=== PATIENT | female | born 1955 | race Caucasian/White ===

== ENCOUNTER 2022-09-09 18:56 | Inpatient (IN) | payer OTHER ==
[~2022-09-09] VITALS: Ht 142.2 cm; Wt 67.6 kg
[2022-09-09] MEDS: DEXT 5% /NACL 0.9% 1,000 ML IV SCH
--- NOTE | 2022-09-09 19:12 | NUR ---
Blood for labwork drawn by residential program coordinator. Patient tolerated well.
[2022-09-09 19:15] VITALS: BP 150/82
[2022-09-09 19:28] LABS: BASOPHILS % (AUTO) 0.1 % (0.0-2.0); EOSINOPHILS % (AUTO) 0.1 % (0.0-4.0); HEMOGLOBIN 12.3 g/dL (12.0-16.0); LYMPHOCYTES # (AUTO) 1.8 K/uL (2.5-16.5); LYMPHOCYTES % (AUTO) 18.1 % (20.5-51.1); MEAN CORPUSCULAR HEMOGLOBIN 25 pg (27-31); MEAN CORPUSCULAR HGB CONC 33 g/dL (33-37); MEAN CORPUSCULAR VOLUME 75.3 fL (80-94); MONOCYTES # (AUTO) 0.8 K/uL (0.8-1.0); MONOCYTES % (AUTO) 8.6 % (1.7-9.3); NEUTROPHILS # (AUTO) 7.2 K/uL (1.8-7.7); NEUTROPHILS % (AUTO) 73.1 % (42.2-75.2); PLATELET COUNT (AUTO) 282 K/uL (140-450); RED BLOOD CELL COUNT(AUTO) 4.92 MIL/uL (4.20-5.40); RED CELL DISTRIBUTION WIDTH 14.7 % (11.6-13.7); WHITE BLOOD COUNT (AUTO) 9.8 K/uL (4.8-10.8)
[2022-09-09 19:43] LABS: APPEARANCE,URINE CLEAR (CLEAR); BILIRUBIN,URINE NEGATIVE (NEGATIVE); BLOOD, URINE NEGATIVE (NEGATIVE); COLOR,URINE YELLOW (YELLOW); LEUKOCYTE ESTERASE ,URINE NEGATIVE (NEGATIVE); NITRITE, URINE NEGATIVE (NEGATIVE); UGLUCOSE NEGATIVE (NEGATIVE)
[2022-09-09 19:56] LABS: ALBUMIN 3.6 g/dL (3.4-5.0); ANION GAP 13.7 (8-16); CARBON DIOXIDE 24.5 mmol/L (21-32); CREATININE 0.7 mg/dL (0.6-1.3); POTASSIUM 3.2 mmol/L (3.5-5.1); TOTAL BILIRUBIN 0.6 mg/dL (0.0-1.0)
--- NOTE | 2022-09-09 20:44 | NUR ---
SIN IN ROOM FOR ASSESSMENT
--- NOTE | 2022-09-09 20:44 | NUR ---
67 Y/O FEMALE BIB SELF, C/O LLQ ABD PAIN, CONSTIPATION THAT STARTED YESTERDAY. PT DENIES N/V/D. PT STATES SHE HAS SMALL STOOL THIS MORNING, BUT STILL FEELS CONSTIPATION. A&OX4, AMBULATES WITH STEADY GAIT, [place] SPEAKING. PT DESCRIBES PAIN "TWISTING" SENSATION, 8/10 PAIN. PT STATES SHE TOOK TYLENOL THIS MORNING WITH NO RELIEF. PMH: HTN, DM2 ALLERGY: NAPROXEN, IBUPROFEN
[2022-09-09] MEDS ORDERED: NACL 0.9% 1,000 ML IV ONE ×2 (20:55→22:30)
[2022-09-09] MEDS ORDERED: MORPHINE SULFATE 4 MG/ML SYR IVP ONE (20:55)
[2022-09-09] MEDS ORDERED: ONDANSETRON 4 MG/2 ML VIAL IVP ONE (20:55)
[2022-09-09] MEDS ORDERED: KCL 20 MEQ IN 100 mL PREMIX 100 ML IV ONE (21:00)
--- NOTE | 2022-09-09 21:16 | NUR ---
PT TAKEN TO CT
[2022-09-09] MEDS ORDERED: HYDROcodone/APAP 5/325 MG 1 TAB TAB PO PRN (22:35)
[2022-09-09] MEDS ORDERED: MORPHINE SULFATE 4 MG/ML SYR IVP PRN (22:35)
[2022-09-09] MEDS ORDERED: ZOLPIDEM 5 MG TAB PO PRN (22:35)
[2022-09-09] MEDS ORDERED: MAG SULF 2000 MG/WATER PREMIX 50 ML IV PRN (22:35)
[2022-09-09] MEDS ORDERED: POTASSIUM CHLORIDE 10 MEQ TABER PO PRN (22:35)
[2022-09-09] MEDS ORDERED: ACETAMINOPHEN 325 MG TAB PO PRN (22:35)
[2022-09-09] MEDS ORDERED: LORazepam 1 MG TAB PO PRN (22:35)
[2022-09-09] MEDS ORDERED: ONDANSETRON 4 MG/2 ML VIAL IVP PRN (22:35)
[2022-09-09] MEDS ORDERED: KCL 20 MEQ IN 100 mL PREMIX 200 ML IV PRN (22:35)
[2022-09-09] MEDS ORDERED: LOSA25TA43 PO (22:42)
[2022-09-09] MEDS ORDERED: METF-1139 PO (22:42)
--- NOTE | 2022-09-09 23:20 | NUR ---
Report given to Connie AKHTAR for transfer of care.
[2022-09-09 23:45] VITALS: BP 133/60
--- NOTE | 2022-09-09 23:45 | NUR ---
RECEIVED PT AAOX4 , FROM ER / WHEELCHAIR , WALKS TO BED , IV SITE INTACT AND PATENT , NID O2 SAT WNL , DENIES PAIN AT THIS TIME , FURTHER ADM. ASSESSMENT WILL BE DONE W/ THE HELP OF VIDEO DOORPERSON OR LUGGAGE PORTER . FALL PREVENTION MEASURES I IN PLACE , CALL LIGHT WITHIN REACH , REMINDS PT NPO EXCEPT MEDS . WILL CONT. TO MONITOR .
--- NOTE | 2022-09-10 02:00 | NUR ---
AWAKE , NO COMPLAIN MADE , CALL LIGHT WITHIN REACH .
[2022-09-10 04:00] VITALS: BP 128/60
--- NOTE | 2022-09-10 04:00 | NUR ---
ROUNDS , NO S/SX OF ACUTE DISTRESS NOTED , NO COMPLAIN OF PAIN AT THIS TIME . WILL CONT. TO MONITOR .
[2022-09-10] MEDS: DEXT 5% /NACL 0.9% 1,000 ML IV SCH ×4 (05:15→17:48)
[2022-09-10 06:47] LABS: BASOPHILS % (AUTO) 0.1 % (0.0-2.0); EOSINOPHILS % (AUTO) 0.1 % (0.0-4.0); HEMATOCRIT 34.9 % (36-48); HEMOGLOBIN 11.5 g/dL (12.0-16.0); LYMPHOCYTES # (AUTO) 1.4 K/uL (2.5-16.5); LYMPHOCYTES % (AUTO) 15.5 % (20.5-51.1); MEAN CORPUSCULAR HEMOGLOBIN 25 pg (27-31); MEAN CORPUSCULAR HGB CONC 33 g/dL (33-37); MEAN CORPUSCULAR VOLUME 75.8 fL (80-94); MONOCYTES # (AUTO) 0.9 K/uL (0.8-1.0); MONOCYTES % (AUTO) 9.6 % (1.7-9.3); NEUTROPHILS # (AUTO) 6.8 K/uL (1.8-7.7); NEUTROPHILS % (AUTO) 74.7 % (42.2-75.2); PLATELET COUNT (AUTO) 274 K/uL (140-450); RED CELL DISTRIBUTION WIDTH 14.8 % (11.6-13.7); WHITE BLOOD COUNT (AUTO) 9.1 K/uL (4.8-10.8)
[2022-09-10 07:02] LABS: ANION GAP 10.5 (8-16); CREATININE 0.5 mg/dL (0.6-1.3); POTASSIUM 3.5 mmol/L (3.5-5.1)
--- NOTE | 2022-09-10 07:25 | NUR ---
RECEIVED REPORT FROM CASH APPLICATIONS MANAGER NURSE FOR CONTINUITY OF CARE. PT IS ASLEEP, AWAKEN BY NAME. NO SIGNS OF DISTRESS. CALL LIGHT WITHIN REACH.
[2022-09-10 08:00] VITALS: BP 136/70
[2022-09-10] MEDS: ENOXAPARIN 40 MG/0.4 ML SYR SUBQ SCH (08:39)
[2022-09-10 16:00] VITALS: BP 126/71
[2022-09-10] MEDS ORDERED: DEXTROSE 50% 50 ML SYR IVP PRN (16:10)
[2022-09-10] MEDS ORDERED: INSULIN LISPRO SLIDING SCALE 100 UNITS/ML VIAL SUBQ PRN (16:10)
[2022-09-10] MEDS: BLOOD GLUCOSE MONITORING 1 DEV DEV FS SCH ×2 (17:02→22:16)
--- NOTE | 2022-09-10 19:30 | NUR ---
ENDORSED PT TO WIRE INSERTER NURSE FOR CONTINUITY OF CARE. PT IS AWAKE AND NO SIGNS OF DISTRESS, CALL LIGHT WITHIN REACH. MNURUM
[2022-09-10 20:00] VITALS: BP 110/60
[2022-09-10] MEDS ORDERED: MAG SULF 2000 MG/WATER PREMIX 50 ML IV ONE (21:15)
[2022-09-11] VITALS: BP 111/62
--- NOTE | 2022-09-11 | NUR ---
SLEEPING , BUT EASILY AROUSABLE , I OFFER TO PT SOMETHING TO EAT BUT SHE SAID LATTER .
[2022-09-11] MEDS: DEXT 5% /NACL 0.9% 1,000 ML IV SCH ×5 (01:15→22:07)
[2022-09-11 04:00] VITALS: BP 110/60
--- NOTE | 2022-09-11 04:00 | NUR ---
AFTER SHE ATE SMALL AMOUNT OF JELLO - PER PT SHE FEELS BIT NAUSEA BUT NO VOMITING AND ON SLIGHT ON AND OFF ABDL . PAIN . - WILL ENDORSE . - RE HOOK THE THE 500CC REMAINING IVF . - CLOSELY MONITOR
--- NOTE | 2022-09-11 06:00 | NUR ---
AWAKE , NO VOMITING , PER PT THERE IS ABDL PAIN VERY LIGHT AT THIS TIME , WILL CONT. TO MONITOR
--- NOTE | 2022-09-11 06:30 | NUR ---
SLEEPING , CALL LIGHT WITHIN REACH .
[2022-09-11] MEDS: BLOOD GLUCOSE MONITORING 1 DEV DEV FS SCH ×4 (06:53→21:00)
[2022-09-11 07:14] LABS: CARBON DIOXIDE 26.5 mmol/L (21-32); CREATININE 0.5 mg/dL (0.6-1.3); POTASSIUM 3.5 mmol/L (3.5-5.1)
[2022-09-11 07:19] LABS: BASOPHILS % (AUTO) 0.1 % (0.0-2.0); EOSINOPHILS % (AUTO) 0.3 % (0.0-4.0); HEMOGLOBIN 11.9 g/dL (12.0-16.0); LYMPHOCYTES # (AUTO) 1.6 K/uL (2.5-16.5); LYMPHOCYTES % (AUTO) 24.2 % (20.5-51.1); MEAN CORPUSCULAR HEMOGLOBIN 25 pg (27-31); MEAN CORPUSCULAR HGB CONC 33 g/dL (33-37); MEAN CORPUSCULAR VOLUME 75.8 fL (80-94); MONOCYTES # (AUTO) 0.5 K/uL (0.8-1.0); MONOCYTES % (AUTO) 8.1 % (1.7-9.3); NEUTROPHILS # (AUTO) 4.6 K/uL (1.8-7.7); NEUTROPHILS % (AUTO) 67.3 % (42.2-75.2); PLATELET COUNT (AUTO) 285 K/uL (140-450); RED BLOOD CELL COUNT(AUTO) 4.75 MIL/uL (4.20-5.40); RED CELL DISTRIBUTION WIDTH 14.6 % (11.6-13.7); WHITE BLOOD COUNT (AUTO) 6.8 K/uL (4.8-10.8)
--- NOTE | 2022-09-11 07:40 | NUR ---
ENDORSED TO AM NURSE TO CLOSELY WATCH THE PROGRESS OF NAUSEA AND VOMITING . IF IT PROGRESS SHE HAVE TO REFER IT TO THE MD SO THAT MD WILL PUT PT ON NPO AGAIN , ENDORSED TO AM NURSE TO CLARIFY TO THE MD IF THE IVF STILL RUN FOR 150CC / HR . AM NURSE VERBALIZES UNDERSTANDING .
--- NOTE | 2022-09-11 07:41 | NUR ---
RECEIVED REPORT FROM NUTRITION SPECIALIST NURSE FOR CONTINUITY OF CARE. PT IS AWAKE, NO SIGNS OF DISTRESS. CALL LIGHT WITHIN REACH. MNURUM
[2022-09-11 08:00] VITALS: BP 138/72
[2022-09-11] MEDS: metFORMIN 500 MG TAB PO SCH (08:15)
[2022-09-11] MEDS: LOSARTAN 25 MG TAB PO SCH (08:16)
[2022-09-11] MEDS: ENOXAPARIN 40 MG/0.4 ML SYR SUBQ SCH (08:18)
--- NOTE | 2022-09-11 09:01 | NUR ---
PATIENT HAS BEEN SCREENED AND CATEGORIZED LOW NUTRITION RISK. PATIENT WILL BE SEEN WITHIN 7 DAYS OF ADMISSION. 09/16/[address]
[2022-09-11 16:00] VITALS: BP 142/76
--- NOTE | 2022-09-11 19:25 | NUR ---
RECEIVED PT FROM AM NURSE FOR CONTINUITY OF CARE. PT IS STABLE
[2022-09-11 20:00] VITALS: BP 129/81
[2022-09-11 22:29] LABS: APPEARANCE,URINE SL CLOUDY (CLEAR); BILIRUBIN,URINE NEGATIVE (NEGATIVE); BLOOD, URINE NEGATIVE (NEGATIVE); COLOR,URINE YELLOW (YELLOW); LEUKOCYTE ESTERASE ,URINE TRACE (NEGATIVE); NITRITE, URINE POSITIVE (NEGATIVE); UGLUCOSE NEGATIVE (NEGATIVE)
[2022-09-11 22:40] LABS: RBC,URINE 0-5 /HPF (0-5)
[2022-09-12 04:00] VITALS: BP 126/79
[2022-09-12] MEDS: DEXT 5% /NACL 0.9% 1,000 ML IV SCH ×3 (04:28→13:25)
[2022-09-12] MEDS: BLOOD GLUCOSE MONITORING 1 DEV DEV FS SCH ×2 (06:29→11:20)
[2022-09-12 06:55] LABS: EOSINOPHILS % (AUTO) 0.2 % (0.0-4.0); HEMATOCRIT 35.3 % (36-48); HEMOGLOBIN 11.7 g/dL (12.0-16.0); LYMPHOCYTES # (AUTO) 1.5 K/uL (2.5-16.5); LYMPHOCYTES % (AUTO) 28.5 % (20.5-51.1); MEAN CORPUSCULAR HEMOGLOBIN 25 pg (27-31); MEAN CORPUSCULAR HGB CONC 33 g/dL (33-37); MEAN CORPUSCULAR VOLUME 75.7 fL (80-94); MONOCYTES # (AUTO) 0.4 K/uL (0.8-1.0); MONOCYTES % (AUTO) 7.4 % (1.7-9.3); NEUTROPHILS # (AUTO) 3.4 K/uL (1.8-7.7); NEUTROPHILS % (AUTO) 63.9 % (42.2-75.2); PLATELET COUNT (AUTO) 284 K/uL (140-450); RED BLOOD CELL COUNT(AUTO) 4.66 MIL/uL (4.20-5.40); RED CELL DISTRIBUTION WIDTH 14.4 % (11.6-13.7); WHITE BLOOD COUNT (AUTO) 5.3 K/uL (4.8-10.8)
[2022-09-12 07:03] LABS: ANION GAP 10.2 (8-16); CARBON DIOXIDE 25.3 mmol/L (21-32); CREATININE 0.5 mg/dL (0.6-1.3); POTASSIUM 3.5 mmol/L (3.5-5.1)
--- NOTE | 2022-09-12 07:20 | NUR ---
ENDORSED PT TO AM NURSE IN STABLE CONDITION
--- NOTE | 2022-09-12 07:20 | NUR ---
ASSUMED CONTINUITY OF CARE. INITIAL ASSESSMENT DONE. KEEP COMFORTABLE ON BED. EXPLAINED USE OF CALL LIGHT/BED/TV/BATHROOM. VERBALIZED UNDERSTANDING. CALL LIGHT WITHIN REACH.
[2022-09-12 08:00] VITALS: BP 141/68
[2022-09-12] MEDS: metFORMIN 500 MG TAB PO SCH (08:27)
[2022-09-12] MEDS: LOSARTAN 25 MG TAB PO SCH (09:17)
[2022-09-12] MEDS: ENOXAPARIN 40 MG/0.4 ML SYR SUBQ SCH (09:18)
--- NOTE | 2022-09-12 10:45 | NUR ---
INSERTED NEW IV LINE ON RIGHT FOREARM GAUGE #22. D/C IV ON RIGHT AC DUE TO INFILTRATION.
--- NOTE | 2022-09-12 16:05 | NUR ---
D/C HOME VIA WHEELCHAIR ACCOMPANIED BY PT. DAUGHTER -LADY. NO C/O PAIN. IN STABLE CONDITION. INFORMED CHARGE NURSE ASHLIE ORTIZ.
== END 2022-09-12 16:05 | disposition home or self-care (01) | DRG 282 ==
LOC: MED 18:56 → MTU 22:38
PROVIDERS: ADMIT Student in an Organized Health Care Education/Training Program; ATTEND Student in an Organized Health Care Education/Training Program
DX: K85.90 Acute pancreatitis without necrosis or infection, unspecified (principal); E11.65 Type 2 diabetes mellitus with hyperglycemia; E86.1 Hypovolemia; I10 Essential (primary) hypertension; Z20.822 Contact with and (suspected) exposure to COVID-19; E78.5 Hyperlipidemia, unspecified; Z88.8 Allergy status to other drugs, medicaments and biological substances
CPT/HCPCS: 36415; 80048; 80053; 81001; 81003; 82150; 82948; 83690; 83735; 84478; 85025; 87081; 87086; 96374; 96375; 99285; J1650; J2270; J2405; J3475; J3480; Q9967